=== PATIENT | male | born 2000 | race Caucasian/White ===

== ENCOUNTER 2023-08-22 04:51 | Inpatient (IN) | payer OTHER ==
[~2023-08-22] VITALS: Ht 157.5 cm; Wt 56.7 kg
[2023-08-22 05:29] LABS: BASOPHILS % (AUTO) 0.6 % (0.0-2.0); EOSINOPHILS % (AUTO) 0.5 % (0.0-7.0); HEMATOCRIT 37.5 % (36.7-47.1); HEMOGLOBIN 12.4 g/dL (12.5-16.3); LYMPHOCYTES # (AUTO) 1.6 K/uL (0.8-4.8); MEAN CORPUSCULAR HEMOGLOBIN 26.1 uug (23.8-33.4); MEAN CORPUSCULAR HGB CONC 33 g/dL (32.5-36.3); MEAN CORPUSCULAR VOLUME 78.9 fL (73.0-96.2); MONOCYTES # (AUTO) 0.6 K/uL (0.1-1.30); NEUTROPHILS # (AUTO) 3.3 K/uL (1.8-8.9); NEUTROPHILS % (AUTO) 59.9 % (38.5-71.5); PLATELET COUNT (AUTO) 164 K/uL (152-348); RED BLOOD CELL COUNT(AUTO) 4.75 MIL/uL (4.06-5.63); RED CELL DISTRIBUTION WIDTH 13.3 % (12.1-16.2); WHITE BLOOD COUNT (AUTO) 5.6 K/uL (3.6-10.2)
[2023-08-22] MEDS ORDERED: DIAZEPAM 10 MG/2 ML DISP.SYRIN ONE (05:30)
[2023-08-22 05:31] LABS: DIFFERENTIAL COMMENT 1
[2023-08-22 05:43] LABS: CALCIUM 9.1 mg/dL (8.5-10.1); CARBON DIOXIDE 28 mmol/L (21-32); CHLORIDE 104 mmol/L (98-107); CREATININE 0.9 mg/dL (0.6-1.3); GLUCOSE 237 mg/dL (74-106); POTASSIUM 3.1 mmol/L (3.5-5.1); SODIUM SERUM 141 mmol/L (136-145); UREA NITROGEN, BLOOD 7 mg/dL (7-18)
[2023-08-22 05:54] LABS: *BILIRUBIN,URIN NEGATIVE (NEGATIVE); *BLOOD, URINE NEGATIVE (NEGATIVE); *CLARITY,URINE CLEAR (CLEAR); *COLOR,URINE YELLOW (YELLOW); *KETONES,URINE NEGATIVE (NEGATIVE); *PROTEIN,URINE NEGATIVE (NEGATIVE); *UROBILINOGEN,URINE 0.2 E.U./dl (NORMAL); NITRITE, URINE NEGATIVE (NEGATIVE)
[2023-08-22] MEDS: DIAZEPAM 10 MG/2 ML DISP.SYRIN IV ONE (05:59)
[2023-08-22] MEDS: IV NORMAL SALINE 1000 ML BAG IV ONE (05:59)
[2023-08-22 06:00] LABS: LEUKOCYTE ESTERASE ,URINE NEGATIVE (NEGATIVE); UGLUCOSE 1+ (NEGATIVE)
[2023-08-22 06:05] LABS: ETHANOL < 3 MG/DL (0-10)
[2023-08-22 06:09] LABS: ACETAMINOPHEN < 2.0 ug/mL (10-30); ALANINE AMINOTRANSFERASE 15 U/L (16-63); ALBUMIN 4.1 g/dL (3.4-5.0); ALKALINE PHOSPHATASE 103 U/L (50-136); ASPARTATE AMINOTRANSFERASE 17 U/L (15-37); BILIRUBIN,DIRECT 0.1 mg/dL (0.0-0.2); BILIRUBIN,TOTAL 0.3 mg/dL (0.2-1.0); TOTAL PROTEIN, SERUM 7.4 g/dL (6.4-8.2)
[2023-08-22] MEDS ORDERED: LURA20TA (06:16)
[2023-08-22] MEDS ORDERED: OLAN5TAB70 PO (06:16)
[2023-08-22] MEDS ORDERED: INSU100V (06:16)
[2023-08-22 06:25] LABS: *AMPHETAMINE, URINE NEGATIVE (NEGATIVE); *BARBITURATE, URINE NEGATIVE (NEGATIVE); *BENZODIAZEPINE, URINE NEGATIVE (NEGATIVE); *CANNABINOID, URINE NEGATIVE (NEGATIVE); *COCCAINE, URINE NEGATIVE (NEGATIVE); *OPIATE, URINE NEGATIVE (NEGATIVE); *PHENCYCLIDINE SCREEN,URINE NEGATIVE (NEGATIVE); FENTANYL, URINE NEGATIVE (NEGATIVE)
[2023-08-22] MEDS ORDERED: IV D5/ 0.9% NACL 1,000 ML IV PRN (10:15)
[2023-08-22] MEDS ORDERED: DEXTROSE 50% 50 ML DISP.SYRIN IV PRN (10:15)
[2023-08-22] MEDS ORDERED: POTASSIUM CHLORIDE 100 ML ONE (12:08)
[2023-08-22] MEDS: BLOOD SUGAR DIAGNOSTIC 1 EACH STRIP VI SCH (12:23)
[2023-08-22] MEDS: POTASSIUM CHLORIDE 50 ML IV SCH (12:24)
[2023-08-22] MEDS: LEVOTHYROXINE SODIUM 25 MCG TABLET PO SCH (13:15)
[2023-08-22] MEDS ORDERED: ONDANSETRON 4 MG/2 ML VIAL IV PRN (13:15)
[2023-08-22] MEDS: INSULIN REGULAR, HUMAN 300 UNIT/3 ML VIAL SQ PRN (13:28)
[2023-08-22] MEDS ORDERED: LEVO25TA2 PO (14:17)
[2023-08-22] MEDS ORDERED: GABA300T25 PO (14:17)
[2023-08-22] MEDS ORDERED: METF-886 PO (14:18)
[2023-08-22 14:45] VITALS: BP 117/68; TEMP 99; O2SAT 99
[2023-08-22] MEDS: IV NS 1000 ML 1,000 ML IV PRN (14:56)
[2023-08-22] MEDS ORDERED: OLANZAPINE 5 MG TABLET PO SCH (15:00)
[2023-08-22] MEDS: GABAPENTIN 300 MG CAPSULE PO SCH (15:00)
[2023-08-22 16:00] VITALS: BP 109/65; TEMP 99; O2SAT 99
[2023-08-22 20:00] VITALS: BP 96/47; TEMP 98.2; O2SAT 99
[2023-08-23 00:11] VITALS: BP 107/65; TEMP 97.9; O2SAT 98
[2023-08-23] MEDS: ACETAMINOPHEN 325 MG TABLET PO PRN (00:32)
[2023-08-23 04:00] VITALS: BP 95/54; TEMP 97.9; O2SAT 97
[2023-08-23 07:37] VITALS: BP 93/46; TEMP 98.2; O2SAT 98
[2023-08-23 07:50] LABS: CALCIUM 8.8 mg/dL (8.5-10.1); CREATININE 1.1 mg/dL (0.6-1.3); PHOSPHOROUS 2.8 mg/dL (2.5-4.9); POTASSIUM 4.5 mmol/L (3.5-5.1)
[2023-08-23 08:14] LABS: BASOPHILS % (AUTO) 0.6 % (0.0-2.0); EOSINOPHILS # (AUTO) 0.1 K/uL (0.0-0.7); EOSINOPHILS % (AUTO) 1.4 % (0.0-7.0); HEMATOCRIT 38.5 % (36.7-47.1); HEMOGLOBIN 12.1 g/dL (12.5-16.3); LYMPHOCYTES # (AUTO) 2.5 K/uL (0.8-4.8); LYMPHOCYTES % (AUTO) 43.1 % (20.5-51.5); MEAN CORPUSCULAR HEMOGLOBIN 26.5 uug (23.8-33.4); MEAN CORPUSCULAR HGB CONC 31 g/dL (32.5-36.3); MEAN CORPUSCULAR VOLUME 84.2 fL (73.0-96.2); MONOCYTES # (AUTO) 0.4 K/uL (0.1-1.30); MONOCYTES % (AUTO) 7.4 % (0.0-11.0); NEUTROPHILS # (AUTO) 2.8 K/uL (1.8-8.9); NEUTROPHILS % (AUTO) 47.5 % (38.5-71.5); PLATELET COUNT (AUTO) 173 K/uL (152-348); RED BLOOD CELL COUNT(AUTO) 4.57 MIL/uL (4.06-5.63); RED CELL DISTRIBUTION WIDTH 13.9 % (12.1-16.2); WHITE BLOOD COUNT (AUTO) 5.9 K/uL (3.6-10.2)
[2023-08-23 11:21] VITALS: BP 95/44; TEMP 97.5; O2SAT 94
[2023-08-23 16:05] VITALS: BP 92/45; TEMP 97.8; O2SAT 95
[2023-08-23 19:50] VITALS: BP 100/64; TEMP 97.7; O2SAT 98
[2023-08-23] MEDS: TRAMADOL HCL 50 MG TABLET PO PRN (22:09)
[2023-08-24 06:14] VITALS: BP 102/58; TEMP 98; O2SAT 98
[2023-08-24] MEDS ORDERED: INSULIN REGULAR, HUMAN 300 UNITS/3 ML VIAL SQ PRN (10:30)
[2023-08-24] MEDS ORDERED: DEXTROSE 50% 50 ML DISP.SYRIN IV PRN (10:30)
[2023-08-24 11:26] VITALS: BP 101/52; TEMP 98.2; O2SAT 98
[2023-08-24] MEDS: INSULIN REGULAR, HUMAN 300 UNIT/3 ML VIAL SQ PRN (12:09)
[2023-08-24] MEDS: BLOOD SUGAR DIAGNOSTIC 1 EACH STRIP VI SCH (12:14)
[2023-08-24 15:06] VITALS: BP 97/57; TEMP 98; O2SAT 99
== END 2023-08-24 14:45 | disposition home or self-care (01) | DRG 812 ==
LOC: ER 04:57 → CCU 13:23 → TELE3 08-23 00:01 → MEDSURG3 08-23 12:20
PROVIDERS: ADMIT Nurse Practitioner Acute Care; ATTEND Nurse Practitioner Acute Care
DX: T43.501A Poisoning by unspecified antipsychotics and neuroleptics, accidental (unintentional), initial encounter (principal); G92.8 Other toxic encephalopathy; F64.0 Transsexualism; M79.7 Fibromyalgia; Z79.4 Long term (current) use of insulin; F32.9 Major depressive disorder, single episode, unspecified; Z90.13 Acquired absence of bilateral breasts and nipples; R00.0 Tachycardia, unspecified; Z91.148 Patient's other noncompliance with medication regimen for other reason; E03.9 Hypothyroidism, unspecified; Z79.890 Hormone replacement therapy; E11.9 Type 2 diabetes mellitus without complications; Z79.899 Other long term (current) drug therapy; R45.1 Restlessness and agitation; R29.818 Other symptoms and signs involving the nervous system; T43.596A Underdosing of other antipsychotics and neuroleptics, initial encounter; Z91.138 Patient's unintentional underdosing of medication regimen for other reason; Y92.009 Unspecified place in unspecified non-institutional (private) residence as the place of occurrence of the external cause
CPT/HCPCS: 36415; 70450; 71045; 83735; 84100; 84443; 84484; 85025; 85730; 93005; A4606; A4663; G0378; G0480; J1815; J3360; J3480; J7040